=== PATIENT | male | born 1980 | race Caucasian/White ===

== ENCOUNTER 2023-09-25 14:16 | Emergency (ER) | payer MEDICAID ==
[~2023-09-25] VITALS: Ht 180.3 cm; Wt 96.5 kg
[2023-09-25 14:36] VITALS: BP 169/96; PULSE 105; RESP 16; TEMP 99; O2SAT 98
== END 2023-09-25 18:01 | disposition home or self-care (01) ==
LOC: ER 14:16
DX: T18.5XXA Foreign body in anus and rectum, initial encounter (principal); W44.B3XA Plastic toy and toy part entering into or through a natural orifice, initial encounter; Y93.89 Activity, other specified; Y92.89 Other specified places as the place of occurrence of the external cause; Y99.8 Other external cause status
CPT/HCPCS: 74018; 99283